=== PATIENT | female | born 1960 | race Caucasian/White ===

== ENCOUNTER 2017-05-02 05:03 | Inpatient (IN) | payer BC, MEDICARE ==
[2017-04-30 11:07] LABS: HEMATOCRIT 37.5 % (36.0-48.0); HEMOGLOBIN 12.4 g/dL (12.0-16.0)
[2017-04-30 11:20] LABS: BUN (BLOOD UREA NITROGEN) 17 MG/DL (6-23); CALCIUM, SERUM 8.7 MG/DL (8.5-10.4); CHLORIDE, SERUM 108 MMOL/L (96-112); CO2 (CARBON DIOXIDE) 29 MMOL/L (24-34); GFR AFRICAN AMERICAN 95 ML/MIN (>=60); GFR NON AFRICAN AMERICAN 82 ML/MIN (>=60); GLUCOSE, SERUM 98 MG/DL (60-99); POTASSIUM, SERUM 3.4 MMOL/L (3.5-5.3); SODIUM, SERUM 143 MMOL/L (135-148)
--- NOTE | ~2017-05-02 | DS ---
Discharge Summary [facility] [address] [place]. [address] NAME: SKY CORDOBA : 60 STATUS : DIS IN PAT#: [id number] AGE: 57 ADM/REG DATE : 05/02/17 MR#: [id number] REPORT SERV DATE: 05/18/17 DICTATED BY: THIAGO VELIZ II DATE: 05/18/17 REPORT STATUS : Draft TRANSCRIBED BY: MYRTLE DATE: 05/18/17 Data Collection from hospitalization DISCHARGE DIAGNOSES: 1. L4-5 spondylolisthesis. 2. Left greater than right lower extremity radiculopathy. 3. 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 4. Asthma. 5. Gastroesophageal reflux disease. 6. Hypothyroidism. 7. Irritable bowel syndrome. 8. Osteoarthritis. CONSULTATIONS: None. PROCEDURES PERFORMED: Revision lumbar facetectomy and laminectomy L4-L5; interbody arthrodesis, L4-L5; application of prosthetic device at L4-L5; posterolateral arthrodesis, L4-L5; posterior nonsegmental instrumentation at L4-L5; use of local autograft, allograft substitute, and bone morphogenic protein; use of microscope and stereotactic spinal imaging on 05/02/2017. PATHOLOGY: Vertebral bone and soft tissue, lumbar spine - chronic reactive changes (no crystals). MEDICATIONS: She is on vitamin D3 of 4000 units daily, Celexa 20 mg at bedtime, Valium 5 mg four times a day as needed, Tylenol PM 2 tablets at bedtime as needed, TriCor 145 mg daily, Dilaudid 1 to 2 tablets every four hours as needed, Advil PM 2 capsules at bedtime as needed, Synthroid 112 mcg daily, Singulair 10 mg at bedtime, MS Contin 30 mg every 12 hours, and vitamin B one capsule daily. CONDITION AT DISCHARGE: Stable. DISPOSITION: The patient was discharged home on a regular diet with activities as instructed. She would follow up with me, 05/24/2017. HOSPITAL COURSE: This a 57-year-old female, who had complained of lumbar spine related symptoms. The symptoms were located at the lower back with radiation into the left lower extremity. The patient has L4-5 spondylolisthesis, left greater than right lower extremity radiculopathy, and L4-L5 instability. Treatment options were discussed, and it was elected to proceed with surgical intervention. She was admitted to the hospital at this time for further evaluation and treatment. Upon admission, she was taken to the operating room where she underwent the above-mentioned procedure. She tolerated this well, and there were no complications. On postop day #1, she had no complaints of a headache. She had no leg complaints. She had a normal respiratory effort. We encouraged her to mobilize. On the , she was doing well with physical Therapy. She did develop a headache and some nausea during the night. Phenergan and a pain pill were given, she slept well. She was encouraged to mobilize. Anesthesia was going to Discharge Summary [place] [id number] [facility] [place]. [address] NAME: SKY CORDOBA : 60 STATUS : DIS IN [facility]#: [id number] AGE: 57 ADM/REG DATE : 05/02/17 MR#: [id number] REPORT SERV DATE: 05/18/17 DICTATED BY: THIAGO VELIZ II DATE: 05/18/17 REPORT STATUS : Draft TRANSCRIBED BY: MYRTLE DATE: 05/18/17 perform a sphenopalatine block for headache. Discharge planning was performed. On 05/06/2017, she was doing well postoperatively. She was eager to go home. Mild intermittent headaches were relieved with medication. Discharge instructions were given. Due to her improved and stable condition, she was discharged home with the above-stated instructions. Information collected by: Ivanna Burton I submit the above information as my discharge summary. ROSSANA/MYRTLE Thiago Veliz II, M.D. / [id number] CC: Thiago Veliz II, M.D.
--- NOTE | ~2017-05-02 | OP ---
Record Of Operation [facility] [address] [place]. [address] NAME: SKY CORDOBA : 60 STATUS : DIS IN PAT#: [id number] AGE: 57 ADM/REG DATE : 05/02/17 MR#: [id number] REPORT SERV DATE: 05/07/17 DICTATED BY: THIAGO HUERTA II DATE: 05/07/17 REPORT STATUS : Draft TRANSCRIBED BY: MODCarlie DATE: 05/07/17 DATE OF PROCEDURE: 05/02/2017 PREOPERATIVE DIAGNOSES: 1. L4-5 spondylolisthesis. 2. Left greater than right lower extremity radiculopathy. 3. 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 POSTOPERATIVE DIAGNOSES: 1. L4-5 spondylolisthesis. 2. Left greater than right lower extremity radiculopathy. 3. 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 PROCEDURE: 1. Revision lumbar facetectomy and laminectomy, L4-L5. 2. Interbody arthrodesis, L4-L5. 3. Application of prosthetic device, L4-L5. 4. Posterolateral arthrodesis, L4-L5. 5. Posterior nonsegmental instrumentation, L4-L5. 6. Use of local autograft, allograft substitute, and bone morphogenic protein. 7. Use of the microscope and stereotactic spinal imaging. FLUIDS: 1600 mL LR. ESTIMATED BLOOD LOSS: 100 mL. DRAINS: One drain. IMPLANTS: Alphatec. COMPLICATIONS: A small 1 mm durotomy at L5 nerve root takeoff point. PREOPERATIVE HISTORY: This is a friendly female well known to me from the past. She underwent a lumbar laminectomy over 10 years ago and did well clinically. She has now developed left greater than right lower extremity radiculopathy. We discussed the pros and cons of continuing nonoperative care versus surgery. She was aware of the risks and the benefits of surgery. We discussed the risks which include, but are not limited to infection, abscess, CSF leak, foot drop, nerve root injury, and a small chance of stroke, and . She has had surgery previously. She had the CSF leak which was repaired at a later date. We discussed that she was at risk for a CSF leak and she understood this. DESCRIPTION OF PROCEDURE: After informed consent was obtained, the patient was brought to the operating room at her request, and general anesthesia achieved. She was placed in the prone position. The back was prepped and draped in a sterile fashion. The stereotactic spinal pin was placed into the right iliac crest and the intraoperative CT scan was completed. The stereotactic spinal imaging system was then tri-gated. The pin was now Record Of Operation [facility] [address] [place]. [address] NAME: SKY CORDOBA : 60 STATUS : DIS IN PAT#: [id number] AGE: 57 ADM/REG DATE : 05/02/17 MR#: [id number] REPORT SERV DATE: 05/07/17 DICTATED BY: THIAGO HUERTA II DATE: 05/07/17 REPORT STATUS : Draft TRANSCRIBED BY: MODL DATE: 05/07/17 placed and the intraoperative CT scan was completed. Stereotactic guidance was then used throughout the case. Next, the minimally invasive incision was performed on the left and the minimally invasive quadrant retractor was placed. The rhhogv-uh-etyftsm blades were also placed. The facet capsule was removed under microscopic visualization. At this point, the pars was now removed. A akxoull-ek-qzqdall decompression was now achieved using the high-speed bur, the Kerrison rongeurs, and the curettes. The hypertrophic ligamentum flavum was removed. There was a significant amount of scarring especially more in the central portion of the canal. The dura was more scarred than I had suspected. The central canal lateral recess and foraminal zones were all well decompressed. There was one small remaining osteophyte compressing the L5 nerve root. With the removal of this osteophyte, we did encounter a tiny durotomy. The small piece of bone was adherent to the dura at this level. At this point, the small piece of bone was now noncompressive, but still adherent to the dura. At this point, I felt that removal of this would cause a larger durotomy. At this point, we decided to proceed with the interbody work and then return to this area for a patch and DuraSeal. At this point, the minimal retraction of the L5 nerve root was performed followed by the diskectomy. The endplates were prepared with the curettes and the david. The punctate bleeding bone was identified on both endplates. Following irrigation the prosthetic device was well placed into the anterior column of L4-L5. Additionally, local autograft, allograft substitute, and a small piece of bone morphogenic protein were placed into the anterior column. At this point, the pedicle screws were applied into L4 and L5. On the right side, we placed percutaneous screws. A repeat CT scan confirmed acceptable placement of the implants. The rods were then final tightened. On the left, we then decorticated the transverse processes of L4-L5, and local autograft, allograft substitute, and bone morphogenic protein were placed along the decorticated surfaces. A deep drain was placed followed by standard closure. Please note that prior to closure, we did place the DuraGen patch over the small durotomy. We also placed DuraSeal. The watertight closure was performed, followed by standard dressing application, and the patient was then extubated, and transferred to PACU in stable condition. KAILEY/MYRTLE Thiago Huerta II, M.D. / [id number] CC: Record Of [address] [address] NAME: SKY CORDOBA : 60 STATUS : DIS IN PAT#: [id number] AGE: 57 ADM/REG DATE : 05/02/17 MR#: [id number] REPORT SERV DATE: 05/07/17 DICTATED BY: THIAGO HUERTA II DATE: 05/07/17 REPORT STATUS : Draft TRANSCRIBED BY: MYRTLE DATE: 05/07/17 Thiago Huerta II, M.D.
[~2017-05-02 05:03] MED LIST: ADVIL PM1 CAP PO; ADVIL PO; CELEXA20 PO; FLEX PO; LOPID6 PO; LORT7 PO; LYRICA75 PO; NAP500 PO; PCET PO; PERCOCET1 TA2 PO; SINGULAIR1 PO; SYN112 PO; TRICOR145 PO; TYLENOL PM PO; VIT B COMPLEX PO; VITAMIN D31000 UNIT PO
[2017-05-06] MEDS ORDERED: DIL2TAB PO (09:02)
[2017-05-06] MEDS ORDERED: V5 PO (09:03)
[2017-05-06] MEDS ORDERED: MSCONTIN PO (09:04)
[2017-05-28] MEDS ORDERED: NEUR300 PO (13:11)
[2017-05-28] MEDS ORDERED: LEVAQUIN750 MG PO (13:12)
[2017-06-01] MEDS ORDERED: CIP5 PO (14:43)
== END 2017-05-06 15:41 | disposition home or self-care (01) | DRG 460 ==
LOC: SDC/OF 05:03 → PACU 12:14 → 3SO 13:26
PROVIDERS: Orthopaedic Surgery
PROC: 0SG00AJ Fusion of Lumbar Vertebral Joint with Interbody Fusion Device, Posterior Approach, Anterior Column, Open Approach (ICD-10-PCS; principal; 2017-05-02 06:45)
PROC: 4A11X4G Monitoring of Peripheral Nervous Electrical Activity, Intraoperative, External Approach (ICD-10-PCS; 2017-05-02 06:45)
DX: M51.16 Intervertebral disc disorders with radiculopathy, lumbar region (principal)
CPT/HCPCS: 80048; 82962; 85014; 85018; 87641; 88304; 88311; 93005; 97110-GP; 97116-GP; 97161-GP; A9270-GY; C1713; C1768; G8978-CK-GP; G8979-CH-GP; J0690; J1170; J2250; J2405; J2710; J3010; J3370